=== PATIENT | male | born 1995 | race Two or more races ===

== ENCOUNTER 2024-02-05 18:57 | Inpatient (IN) | payer MEDICAID ==
[~2024-02-05] VITALS: Ht 188 cm; Wt 130.9 kg
--- NOTE | 2024-02-05 19:28 | ED.PDOC ---
GI ASSESSMENT HPI Comments 28 male who came to ER for abdominal pain. Patient states he has been having abdominal since yesterday, originating at the epigastric area, radiating downwards to his suprapubic lower abdomen, described as squeezing and constant. Noted to be nauseated but denies any vomiting or changes in bowel habits. Denie s any history of abdominal surgeries. Denies any history of similar abdominal pain. Chief Complaint: Abdominal Pain Time Seen by MD: 19:27 Reviewed Notes: Nurses Notes Allergies: Coded Allergies: NO KNOWN ALLERGIES (Unverified , 02/05/24) Information Source: Patient Mode of Arrival: Ambulatory Timing: Hours Duration: Since onset Prehospital treatment: None Quality: Other (Squeezing) Vomitus: None Stool: Normal Severity: Moderate Recent: None Recent Hx of: None Pain Location: Epigastric, Suprapubic Modifying Factors: Nothing Associated sign and symptoms: Nausea, Abdominal Pain Past Medical History PAST MEDICAL HISTORY: Denies Surgical History: Denies all surgeries Family History Family History: Reviewed,noncontributory to illness Social History Smoker: Non-Smoker Alcohol: Denies ETOH Use Drugs: Denies Drug Use Lives In: Home Constitutional: denies: chills, diaphoresis, fatigue, fever, malaise, sweats, weakness, others EENTM: denies: blurred vision, double vision, ear bleeding, ear discharge, ear drainage, ear pain, ear ringing, eye pain, eye redness, hearing loss, mouth pain, mouth swelling, nasal discharge, nose bleeding, nose congestion, nose pain, photophobia, tearing, throat pain, throat swelling, voice changes, others Respiratory: denies: cough, hemoptysis, orthopnea, SOB at rest, shortness of breath, SOB with excertion, stridor, wheezing, others Cardiovascular: denies: chest pain, dizzy spells, diaphoresis, Dyspnea on exertion, edema, irregular heart beat, left arm pain, lightheadedness, palpitations, PND, syncope, others Gastrointestinal: reports: abdominal pain, nausea; denies: abdomen distended, blood streaked bowels, constipated, diarrhea, dysphagia, difficulty swallowing, hematemesis, melena, poor appetite, poor fluid intake, rectal bleeding, rectal pain, vomiting, others Genitourinary: denies: burning, dysuria, flank pain, frequency, hematuria, incontinence, penile discharge, penile sore, pain, testicle pain, testicle swelling, urgency, others Neurological: denies: dizziness, fainting, headache, left sided numbness, left sided weakness, numbness, paresthesia, pre-existing deficit, right sided numbness, right sided weakness, seizure, speech problems, tingling, tremors, weakness, others Musculoskeletal: denies: back pain, gout, joint pain, joint swelling, muscle pain, muscle stiffness, neck pain, others Integumetry: denies: bruises, change in color, change in hair/nails, dryness, laceration, lesions, lumps, rash, wounds, others Allergic/Immunocompromised: denies: Difficulty Healing, Frequent Infections, Hives, Itching, others Hematologic/Lymphatic: denies: anemia, blood clots, easy bleeding, easy bruising, swollen glands, others Endocrine: denies: excessive hunger, excessive sweating, excessive thirst, excessive urination, flushing, intolerance to cold, intolerance to heat, unexplained weight gain, unexplained weight loss, others Psychiatric: denies: anxiety, bipolar disorder, depression, hopeless, panic disorder, schizophrenia, sleepless, suicidal, others Physical Exam General Appearance: No Apparent Distress, Normal HEENT: Normal ENT Inspection, Pharynx Normal, TMs Normal Neck: Full Range of Motion, Non-Tender, Normal, Normal Inspection Respiratory: Chest Non-Tender, Lungs Clear, No Accessory Muscle Use, No Respiratory Distress, Normal Breath Sounds Cardiovascular: No Edema, No JVD, No Murmur, No Gallop, Normal Peripheral Pulses, Regular Rate/Rhythm Breast Exam: Deferred Gastrointestinal: No Organomegaly, Non Tender, No Pulsatile Mass, Normal Bowel Sounds, Soft Genitalia: Deferred Pelvic: Deferred Rectal: Deferred Extremities: No calf tenderness, Normal capillary refill, Normal inspection, Normal range of motion, Non-tender, No pedal edema Musculoskeletal : Apperance: Normal Neurologic: Alert, shredded filler cigar maker machine II-XII nml as Tested, No Motor Deficits, Normal Affect, Normal Mood, No Sensory Deficits Cerebellar Function: Normal Reflexes: Normal Skin: Dry, Normal Color, Warm Lymphatic: No Adenopathy Was a procedure done? Was a procedure done?: No GI differential Dx Differential Diagnosis: Cholecystitis, Constipation, Diverticular disease, Gastritis/PUD, Gastroenteritis, Pancreatitis, UTI, Urolithiasis X-Ray, Labs, Meds, VS Vital Signs Date Time Temp Pulse Resp B/P (MAP) Pulse Ox O2 Delivery O2 Flow Rate FiO2 02/05/24 22:06 Room Air* 0 21 02/05/24 22:00 108 20 129/67 (87) 97 02/05/24 21:54 102 18 121/65 02/05/24 21:36 100 20 119/81 02/05/24 21:13 98.0 100 20 119/81 (94) 96 98.0 02/05/24 21:13 100 20 100 Room Air 02/05/24 19:15 97.5 90 16 130/77 (94) 97 Lab Test 02/05/24 19:24 Range/Units White Blood Count 15.2 H 4.4-10.8 10^3/uL Red Blood Count 5.65 4.5-5.90 10^6/uL Hemoglobin 16.5 13.5-17.5 g/dL Hematocrit 50.1 41.0-53.0 % Mean Corpuscular Volume 88.6 80.0-100.0 fL Mean Corpuscular Hemoglobin 29.2 28.0-32.0 pg Mean Corpuscular Hemoglobin Concent 33.0 32.0-36.0 g/dL Red Cell Distribution Width 13.6 11.8-14.3 % Platelet Count 261 140-450 10^3/uL Mean Platelet Volume 7.9 6.9-10.8 fL Neutrophils (%) (Auto) 78.7 37.0-80.0 % Lymphocytes (%) (Auto) 13.0 10.0-50.0 % Monocytes (%) (Auto) 7.8 0.0-12.0 % Eosinophils (%) (Auto) 0.2 0.0-7.0 % Basophils (%) (Auto) 0.3 0.0-2.0 % Neutrophils # (Auto) 11.9 H 1.6-8.6 10 ^3/uL Lymphocytes # (Auto) 2.0 0.4-5.4 10 ^3/uL Monocytes # (Auto) 1.2 0-1.3 10 ^3/uL Eosinophils # (Auto) 0 0-0.8 10 ^3/uL Basophils # (Auto) 0 0-0.2 10 ^3/uL Nucleated Red Blood Cells 0.0 % Sodium Level 138 136-145 mmol/L Potassium Level 3.9 3.5-5.1 mmol/L Chloride Level 102 98-107 mmol/L Carbon Dioxide Level 27 20-31 mmol/L Anion Gap 9 5-15 Blood Urea Nitrogen 7 L 9-23 mg/dL Creatinine 1.04 0.700-1.30 mg/dL Glomerular Filtration Rate Calc 101 >90 mL/min BUN/Creatinine Ratio 6.7 L 10.0-20.0 Serum Glucose 144 H 74-106 mg/dL Hemoglobin A1c 5.7 <5.7 % A1C Calcium Level 10.2 8.7-10.4 mg/dL Total Bilirubin 0.8 0.2-1.0 mg/dL Aspartate Amino Transferase (AST) 13 13-40 U/L Alanine Aminotransferase (ALT) 29 7-40 U/L Alkaline Phosphatase 103 46-116 U/L Total Protein 7.7 5.7-8.2 g/dL Albumin 4.8 3.2-4.8 g/dL Lipase 28 12-53 U/L Current Medications Medications (Trade) Dose Ordered Sig/Nikki Route Start Time Stop Time Status Last Admin Morphine Sulfate 4 mg ONCE ONCE IV 02/05/24 21:00 02/05/24 21:04 DC 02/05/24 21:36 Ondansetron HCl (Zofran) 4 mg ONCE ONCE IV 02/05/24 21:00 02/05/24 21:04 DC 02/05/24 21:34 Metronidazole 100 ml @ 100 mls/hr Q8HR IV 02/05/24 22:00 02/05/24 22:14 Ceftriaxone Sodium 50 ml @ 100 mls/hr ONCE ONCE IV 02/05/24 22:00 02/05/24 22:29 DC 02/05/24 22:15 Sodium Chloride 1,000 ml @ 60 mls/hr [id number] IV 02/05/24 22:00 02/05/24 22:14 Exam: CT CT AB PEL WO CON-NO ORAL OR IV Findings: Evaluation of solid organs is limited due to lack of intravenous contrast use. Lung Bases: No acute or significant lung base finding. Normal heart size. No pleural or pericardial effusion. Liver: The liver is normal in size. No focal lesions. Diffuse steatosis. Gallbladder and Biliary Tree: Unremarkable Spleen: Unremarkable Pancreas: The pancreas is grossly normal in appearance. Adrenal Glands: Unremarkable Kidneys: Kidneys are grossly normal without calculi or hydronephrosis. Bladder: Grossly unremarkable for degree of distention. Bowel: The stomach is grossly normal in appearance. Mild concentric wall thickening of the distal colon, likely reactive .Abnormally dilated appendix measuring up to 10 mm with a 7 mm appendicolith at the base with adjacent fat stranding and disorganized fluid, compatible with acute appendicitis. No drainable abscess identified. Ascites: Absent Lymphadenopathy: No mesenteric, retroperitoneal or periportal lymphadenopathy. Abdominal Wall and Mesentery: Unremarkable. Vasculature: The visualized abdominal aorta is normal in size and caliber. Evaluation of abdominal and pelvic vessels is limited due to lack of intravenous contrast. Pelvic Organs: Unremarkable Musculoskeletal: No aggressive focal bony lesions, acute fractures or dislocation. IMPRESSION: 1. Acute appendicitis with adjacent fat stranding / disorganized fluid. No drainable abscess is identified. Time of 1ST Reevaluation: 19:24 Reevaluation 1ST: Unchanged Time of 2ND Reevaluation: 20:14 Reevaluation 2ND: Unchanged Patient Education/Counseling: Diagnosis, Treatment Family Education/Counseling: No Family Present Departure 1 Departure Time of Disposition: 20:14 Impression: Primary Impression: Appendicitis Disposition: ADMITTED INPATIENT Condition: Guarded Discharged With: Self, Relative Critical Care Note Critical Care Time?: No Stability Stability form required: No Heart Score Heart Score: Heart Score Response (Comments) Value History N/A 0 EKG N/A 0 Age N/A 0 Risk Factors N/A 0 Troponin N/A 0 Total 0 I personally scribed for FRANKY BOUDREAUX MD ([email or web address]) on 02/05/24 at 19:28. Electronically submitted by Vimal Perez ([email or web address]). I personally scribed for FRANKY BOUDREAUX MD ([email or web address]) on 02/05/24 at 20:23. Electronically submitted by Vimal Perez ([email or web address]). FRANKY BOUDREAUX MD Feb 05, 2024 19:28
[2024-02-05 19:35] LABS: Basophils # (auto) 0 10 ^3/uL (0-0.2); Basophils % (auto) 0.3 % (0.0-2.0); Eosinophils # (auto) 0 10 ^3/uL (0-0.8); Eosinophils % (auto) 0.2 % (0.0-7.0); Hematocrit 50.1 % (41.0-53.0); Hemoglobin 16.5 g/dL (13.5-17.5); Mean Corpuscular Hemoglobin 29.2 pg (28.0-32.0); Mean Corpuscular Volume 88.6 fL (80.0-100.0); Monocytes # (auto) 1.2 10 ^3/uL (0-1.3); Monocytes % (auto) 7.8 % (0.0-12.0); Neutrophils # (auto) 11.9 10 ^3/uL (1.6-8.6); Neutrophils % (auto) 78.7 % (37.0-80.0); Platelet Count (auto) 261 10^3/uL (140-450); Red Blood Cells 5.65 10^6/uL (4.5-5.90); Red Cell Distribution Width 13.6 % (11.8-14.3); White Blood Cell 15.2 10^3/uL (4.4-10.8)
[2024-02-05 19:52] LABS: Alanine Aminotransferase 29 U/L (7-40); Alkaline Phosphatase 103 U/L (46-116); Anion Gap 9 (5-15); Aspartate Aminotransferase 13 U/L (13-40); BUN/Creatinine Ratio 6.7 (10.0-20.0); Calcium 10.2 mg/dL (8.7-10.4); Carbon Dioxide 27 mmol/L (20-31); Chloride 102 mmol/L (98-107); Lipase 28 U/L (12-53); Potassium 3.9 mmol/L (3.5-5.1); Sodium 138 mmol/L (136-145)
[2024-02-05 19:53] LABS: Bilirubin, Total 0.8 mg/dL (0.2-1.0); Total Protein 7.7 g/dL (5.7-8.2)
[2024-02-05 19:56] LABS: Albumin 4.8 g/dL (3.2-4.8); Blood Urea Nitrogen 7 mg/dL (9-23); Glucose 144 mg/dL (74-106)
--- NOTE | 2024-02-05 20:08 | DVH ---
Exam: CT CT AB PEL WO CON-NO ORAL OR IV History: BLQ pain Comparison Study: None Technique: Multidetector spiral CT of the abdomen was performed from lung bases to pubic symphysis. Imaging was performed without IV contrast. Axial, coronal and sagittal multiplanar reformats were ob tained from the axial data set by the technologist. Radiation Dose : 1. Abdomen/Pelvis: CTDIvol 25.8 mGy, DLP 1549 mGy*cm. Findings: Evaluation of solid organs is limited due to lack of intravenous contrast use. Lung Bases: No acute or significant lung base finding. Normal heart size. No pleural or pericardial effusion. Liver: The liver is normal in size. No focal lesions. Diffuse steatosis. Gallbladder and Biliary Tree: Unremarkable Spleen: Unremarkable Pancreas: The pancreas is grossly normal in appearance. Adrenal Glands: Unremarkable Kidneys: Kidneys are grossly normal without calculi or hydronephrosis. Bladder: Grossly unremarkable for degree of distention. Bowel: The stomach is grossly normal in appearance. Mild concentric wall thickening of the distal col on, likely reactive .Abnormally dilated appendix measuring up to 10 mm with a 7 mm appendicolith at t he base with adjacent fat stranding and disorganized fluid, compatible with acute appendicitis. No dr ainable abscess identified. Ascites: Absent Lymphadenopathy: No mesenteric, retroperitoneal or periportal lymphadenopathy. Abdominal Wall and Mesentery: Unremarkable. Vasculature: The visualized abdominal aorta is normal in size and caliber. Evaluation of abdominal a nd pelvic vessels is limited due to lack of intravenous contrast. Pelvic Organs: Unremarkable Musculoskeletal: No aggressive focal bony lesions, acute fractures or dislocation. IMPRESSION: 1. Acute appendicitis with adjacent fat stranding / disorganized fluid. No drainable abscess is ident ified. Radiation optimization: All CT scans at this facility use at least one of these dose optimization karena hniques: automated exposure control mA and/or kV adjustment per patient size (includes targeted exam s where dose is matched to clinical indication) or iterative reconstruction.
[2024-02-05] MEDS: DONNATAL 5ml ORAL Elix (BELLADONNA ALK-PHENOBARB) PO ONE (20:57)
[2024-02-05] MEDS: ONDANSETRON ODT 4 MG TAB PO ONE (20:57)
[2024-02-05] MEDS: MAALOX PLUS or MAALOX 30 ML PO ONE (20:57)
[2024-02-05] MEDS: HYDROcodone-ACET 10/325MG TAB PO ONE (20:57)
[2024-02-05] MEDS: LIDOCAINE VISCOUS 2% 15ML UD PO ONE (20:57)
[2024-02-05] MEDS: ONDANSETRON HCL 4 MG/2 ML VIAL IV ONE (21:34)
[2024-02-05] MEDS: MORPHINE SULFATE 4 MG/ML SYR/VIAL IV ONE (21:36)
[2024-02-05] MEDS ORDERED: ACETAMINOPHEN 325 MG TAB PO PRN (22:00)
[2024-02-05] MEDS ORDERED: DOCUSATE SOD 100 MG CAP PO PRN (22:00)
[2024-02-05] MEDS: metroNIDAZOLE 500MG/100ML 100 ML IV SCH (22:14)
[2024-02-05] MEDS: SODIUM CHLORIDE 0.9% 1,000 ML IV SCH (22:14)
[2024-02-05] MEDS: cefTRIAXone 1GM/50ML D5W 50 ML IV ONE (22:15)
--- NOTE | 2024-02-05 22:34 | DVHHP2 ---
History of Present Illness Reason for Visit: Acute appendicitis History of Present Illness The patient is a 28-year-old male who denies past medical history presented to [facility] ED with complaint of abdominal pain. Patient reports symptoms progressively get worse with epigastric abdominal pain, radiating downward to the suprapubic lower abdomen, squeezing in nature, constant, rating 9/10 numeric scale, nauseated, getting worse that prompted this visit. Patient was seen and evaluated in the ED, laboratory data shows elevated WBC 15.2, platelets 261, sodium 138, potassium 3.9, BUN 7, creatinine 1.04, GFR 101, glucose 144, lipase 28. Abdomen/pelvis CT revealing acute appendicitis. Patient was started on IV antibiotic regimen Rocephin, please see medication orders section in the computer. On my assessment, patient denied chest pain, no headache, no dizziness, no shortness of breath, no diarrhea, no nausea, no vomiting, no fever, no chills. Patient was admitted for further evaluation and medical management. Past Medical History Denies past medical history Past Surgical History Denies all surgeries Family History Reviewed, noncontributory to the management of this case. Past Social History The patient lives at home, denies smoking, alcohol or illicit drugs abuse. Review of Systems Constitutional: No: Fever, Chills, Sweats, Weakness, Malaise, Other Eyes: No: Pain, Vision change, Conjunctivae inflammation, Eyelid inflammation, Other, Redness ENT: No: Ear pain, Ear discharge, Nose pain, Nose discharge, Nose congestion, Mouth pain, Mouth swelling, Throat pain, Throat swelling, Other Respiratory: No: Cough, Dry, Shortness of breath, SOB with excertion, Wheezing, Hemoptysis, Pleuritic Pain, Sputum, Wheezing, Other Cardiovascular: No: Chest Pain, Palpitations, Orthopnea, Paroxysmal Noc. Dyspnea, Edema, Lt Headedness, Other Gastrointestinal: Nausea, Abdominal Pain; No: Vomiting, Diarrhea, Constipation, Melena, Hematochezia, Other Genitourinary: No Dysuria, No Frequency, No Incontinence, No Hematuria, No Retention, No Other Musculoskeletal: No: other, neck pain, shoulder pain, arm pain, back pain, hand pain, leg pain, foot pain Skin: No: Rash, Lesions, Jaundice, Bruising, Other Neurological: No: Weakness, Numbness, Incoordination, Change in speech, Confus ion, Seizures, Other Allergies: Coded Allergies: NO KNOWN ALLERGIES (Unverified , 02/05/24) Medications Current Medications Medications Dose Ordered Sig/Nikki Route Start Time Stop Time Status Last Admin Dose Admin Metronidazole 100 ml @ 100 mls/hr Q8HR IV 02/05/24 22:00 02/05/24 22:14 100 MLS/HR Ceftriaxone Sodium 50 ml @ 100 mls/hr DAILY@2300 IV 02/06/24 23:00 Sodium Chloride 1,000 ml @ 60 mls/hr [id number] IV 02/05/24 22:00 02/05/24 22:14 60 MLS/HR Acetaminophen/ Hydrocodone Bitart 1 tab Q4HP PRN PO 02/05/24 22:00 Ondansetron HCl 4 mg Q4HP PRN IV 02/05/24 22:00 Docusate Sodium 100 mg BIDPRN PRN PO 02/05/24 22:00 Acetaminophen 650 mg Q6HP PRN PO 02/05/24 22:00 Morphine Sulfate 2 mg Q4HPRN PRN IV 02/05/24 22:00 Exam Vital Signs Vital Signs Date Time Temp Pulse Resp B/P (MAP) Pulse Ox O2 Delivery O2 Flow Rate FiO2 02/05/24 22:06 Room Air* 0 21 02/05/24 21:54 102 18 121/65 02/05/24 21:13 98.0 96 98.0 General Appearance: Alert, Oriented X3, Cooperative, No acute distress HEENT: Atraumatic, PERRLA, EOMI, Mucous membr. moist/pink Respiratory: Clear to auscultation, Normal air movement Cardiovascular: Regular rate, Normal S1, Normal S2, No murmurs Abdominal: Normal bowel sounds, Soft, No hepatospenomegaly, No masses, Other (Reports tenderness) Extremities: No clubbing, No cyanosis, No edema, Normal pulses, No tenderness/swelling Skin: No rashes, No breakdown, No significant lesion Neuro: Normal gait, Normal speech, Strength at 5/5 X4 ext, Normal tone, Sensation intact, Cranial nerves 3-12 NL, Reflexes 2+ Psych/Mental Status: Mental status NL, Mood NL Labs/Xrays Labs Test 02/05/24 19:24 Range/Units White Blood Count 15.2 H 4.4-10.8 10^3/uL Red Blood Count 5.65 4.5-5.90 10^6/uL Hemoglobin 16.5 13.5-17.5 g/dL Hematocrit 50.1 41.0-53.0 % Mean Corpuscular Volume 88.6 80.0-100.0 fL Mean Corpuscular Hemoglobin 29.2 28.0-32.0 pg Mean Corpuscular Hemoglobin Concent 33.0 32.0-36.0 g/dL Red Cell Distribution Width 13.6 11.8-14.3 % Platelet Count 261 140-450 10^3/uL Mean Platelet Volume 7.9 6.9-10.8 fL Neutrophils (%) (Auto) 78.7 37.0-80.0 % Lymphocytes (%) (Auto) 13.0 10.0-50.0 % Monocytes (%) (Auto) 7.8 0.0-12.0 % Eosinophils (%) (Auto) 0.2 0.0-7.0 % Basophils (%) (Auto) 0.3 0.0-2.0 % Neutrophils # (Auto) 11.9 H 1.6-8.6 10 ^3/uL Lymphocytes # (Auto) 2.0 0.4-5.4 10 ^3/uL Monocytes # (Auto) 1.2 0-1.3 10 ^3/uL Eosinophils # (Auto) 0 0-0.8 10 ^3/uL Basophils # (Auto) 0 0-0.2 10 ^3/uL Nucleated Red Blood Cells 0.0 % Sodium Level 138 136-145 mmol/L Potassium Level 3.9 3.5-5.1 mmol/L Chloride Level 102 98-107 mmol/L Carbon Dioxide Level 27 20-31 mmol/L Anion Gap 9 5-15 Blood Urea Nitrogen 7 L 9-23 mg/dL Creatinine 1.04 0.700-1.30 mg/dL Glomerular Filtration Rate Calc 101 >90 mL/min BUN/Creatinine Ratio 6.7 L 10.0-20.0 Serum Glucose 144 H 74-106 mg/dL Hemoglobin A1c 5.7 <5.7 % A1C Calcium Level 10.2 8.7-10.4 mg/dL Total Bilirubin 0.8 0.2-1.0 mg/dL Aspartate Amino Transferase (AST) 13 13-40 U/L Alanine Aminotransferase (ALT) 29 7-40 U/L Alkaline Phosphatase 103 46-116 U/L Total Protein 7.7 5.7-8.2 g/dL Albumin 4.8 3.2-4.8 g/dL Lipase 28 12-53 U/L PATIENT: AARON BANKST: [id number] UNIT: [id number] : 1995 LOC: ER ROOM / BED: / AGE / SEX: 28 / M ADM STATUS: REG ER SERVICE 21 ORDERING PHYSICIAN: FRANKY BOUDREAUX MD PROCEDURE(s): ABPL - CT AB PEL WO CON-NO ORAL OR IV REASON: BLQ pain ORDER NUMBER(s): [id number], ACCESSION NUMBER(s): [id number] Exam: CT CT AB PEL WO CON-NO ORAL OR IV History: BLQ pain Comparison Study: None Technique: Multidetector spiral CT of the abdomen was performed from lung bases to pubic symphysis. Imaging was performed without IV contrast. Axial, coronal and sagittal multiplanar reformats were obtained from the axial data set by the technologist. Radiation Dose: 1. Abdomen/Pelvis: CTDIvol 25.8 mGy, DLP 1549 mGy*cm. Findings: Evaluation of solid organs is limited due to lack of intravenous contrast use. Lung Bases: No acute or significant lung base finding. Normal heart size. No pleural or pericardial effusion. Liver: The liver is normal in size. No focal lesions. Diffuse steatosis. Gallbladder and Biliary Tree: Unremarkable Spleen: Unremarkable Pancreas: The pancreas is grossly normal in appearance. Adrenal Glands: Unremarkable Kidneys: Kidneys are grossly normal without calculi or hydronephrosis. Bladder: Grossly unremarkable for degree of distention. Bowel: The stomach is grossly normal in appearance. Mild concentric wall thickening of the distal colon, likely reactive .Abnormally dilated appendix measuring up to 10 mm with a 7 mm appendicolith at the base with adjacent fat stranding and disorganized fluid, compatible with acute appendicitis. No drainable abscess identified. Ascites: Absent Lymphadenopathy: No mesenteric, retroperitoneal or periportal lymphadenopathy. Abdominal Wall and Mesentery: Unremarkable. Vasculature: The visualized abdominal aorta is normal in size and caliber. Evaluation of abdominal and pelvic vessels is limited due to lack of intravenous contrast. Pelvic Organs: Unremarkable Musculoskeletal: No aggressive focal bony lesions, acute fractures or dislocation. IMPRESSION: 1. Acute appendicitis with adjacent fat stranding/disorganized fluid. No drainable abscess is identified. Assessment/Plan Assessment/Plan Acute abdominal pain Acute appendicitis Leukocytosis, unspecified Plan 1. Admit to telemetry unit 2. Breathing treatment 3. Pain control management 4. IV antibiotic management 5. Management of fluids and electrolytes 6. Consultation for surgery 7. Diagnostic test abdomen/pelvis CT 8. DVT prophylaxis on SCDs 9. Repeat labs CBC, CMP in a.m. 10. Home medication reviewed and reconciled 11. Continue with current medical management 12. Treatment plan discussed with patient and RN. Patient verbalized understanding. Plan discussed with: Patient, Other (RN) My Orders Orders - BRENDA GILMORE DNP Procedure Category Date Status Time Metronidazole PHA 02/05/24 In Process 500mg/100ml (Flagyl 22:00 Ceftriaxone 1gm/50ml PHA 02/06/24 In Process D5w (Rocephin) 23:00 Allergies GWENDOLYN 02/05/24 In Process 21:46 Code Status CODE 02/05/24 Transmitted 21:46 Sodium Chloride 0.9% PHA 02/05/24 In Process 22:00 Oxygen Per Hour RT 02/05/24 Transmitted 21:46 Hydrocodone-Acet PHA 02/05/24 In Process 5/325mg Tab (Marquand 22:00 Ondansetron Hcl PHA 02/05/24 In Process (Zofran) 22:00 Docusate Sodium PHA 02/05/24 In Process Capsule (Colace 22:00 Complete Blood Count LAB 02/06/24 Verified 04:00 Comprehensive LAB 02/06/24 Verified Metabolic Panel 04:00 Npo (Nothing By DIET 02/06/24 Transmitted Mouth) Diet Breakfast Condition: Serious GWENDOLYN 02/05/24 In Process 21:46 Acetaminophen Tablet PHA 02/05/24 In Process (Tylenol Tablet) 22:00 Bedrest With Bathroom GWENDOLYN 02/05/24 In Process Privileg 21:46 Morphine Sulfate PHA 02/05/24 In Process Injection 22:00 Sequential GWENDOLYN 02/05/24 In Process Compression Device * Surgical Consult CONS 02/05/24 Transmitted Admit ADMIT 02/05/24 Transmitted 22:32 Nitroglycerin PHA 02/05/24 Transmitted Sublingual (Ntrostat 22:45 Morphine Sulfate PHA 02/05/24 Transmitted Injection 22:45 Notify Of Changes GWENDOLYN 02/05/24 Verified From Base 22:32 Silk Screener For [facility] 02/05/24 Verified 24 Hours 22:32 Emergency Dysrhythmia [facility] 02/05/24 Verified Protocol 22:32 Rhythm Strips Once [facility] 02/05/24 Verified Every Shift 22:32 Oxygen By Nasal RT 02/05/24 Verified Cannula 22:32 Problem List: (1) Acute abdominal pain (2) Acute appendicitis (3) Leukocytosis, unspecified Date of Service: Feb 05, 2024 Billing Provider: BRENDA GILMORE DNP Common Visit Codes: [id number] INP/OBS CARE (HIGH) BRENDA GILMORE DNP Feb 05, 2024 22:34
[2024-02-05] MEDS ORDERED: NITROGLYCERIN 0.4 MG SL TAB SL PRN (22:45)
[2024-02-05] MEDS ORDERED: MORPHINE SULFATE INJ 2 MG/ml SYRG IV PRN (22:45)
[2024-02-06] MEDS: HYDROcodone-ACET 5/325MG TAB PO PRN (05:52)
[2024-02-06 06:17] LABS: Basophils # (auto) 0.1 10 ^3/uL (0-0.2); Basophils % (auto) 0.4 % (0.0-2.0); Eosinophils # (auto) 0 10 ^3/uL (0-0.8); Hematocrit 44.9 % (41.0-53.0); Hemoglobin 15.3 g/dL (13.5-17.5); Lymphocytes # (auto) 1.5 10 ^3/uL (0.4-5.4); Lymphocytes % (auto) 8.5 % (10.0-50.0); Mean Corpuscular Hemoglobin 29.9 pg (28.0-32.0); Mean Corpuscular Hgb Conc. 34.2 g/dL (32.0-36.0); Mean Corpuscular Volume 87.6 fL (80.0-100.0); Monocytes # (auto) 1.4 10 ^3/uL (0-1.3); Monocytes % (auto) 7.7 % (0.0-12.0); Neutrophils # (auto) 14.7 10 ^3/uL (1.6-8.6); Neutrophils % (auto) 83.4 % (37.0-80.0); Platelet Count (auto) 232 10^3/uL (140-450); Red Blood Cells 5.12 10^6/uL (4.5-5.90); Red Cell Distribution Width 13.3 % (11.8-14.3); White Blood Cell 17.6 10^3/uL (4.4-10.8)
[2024-02-06 06:36] LABS: Alanine Aminotransferase 25 U/L (7-40); Alkaline Phosphatase 88 U/L (46-116); Anion Gap 7 (5-15); BUN/Creatinine Ratio 9.2 (10.0-20.0); Calcium 9.7 mg/dL (8.7-10.4); Carbon Dioxide 25 mmol/L (20-31); Chloride 104 mmol/L (98-107); Potassium 4.3 mmol/L (3.5-5.1); Sodium 136 mmol/L (136-145)
[2024-02-06 06:37] LABS: Albumin 4.2 g/dL (3.2-4.8); Aspartate Aminotransferase 8 U/L (13-40); Blood Urea Nitrogen 9 mg/dL (9-23); Glucose 130 mg/dL (74-106)
[2024-02-06 08:39] LABS: Urine Bacteria FEW /hpf (None Seen); Urine Blood Negative /uL (Negative); Urine Clarity Clear (Clear); Urine Color Yellow (Yellow); Urine Mucus FEW (None Seen); Urine Protein, UAD 1+ (Negative); Urine Specific Gravity 1.036 (1.001-1.035); Urine Urobilinogen Normal (Negative); Urine WBC 6 /hpf (0 - 3); Urine pH 5.5 (5.0-9.0)
--- NOTE | 2024-02-06 11:14 | DVHPN2 ---
Subjective The patient seen and examined at bedside. The patient is status post appendectomy. Still complaint of abdominal pain. Reviewed: Care Plan, H&P, Labs, Medications, Previous Orders, Radiology Changes from previous H/P or p: No Changes Eyes: No Pain, No Vision change, No Conjunctivae inflammation, No Eyelid inflammation, No Other, No Redness ENT: No Ear pain, No Ear discharge, No Nose pain, No Nose discharge, No Nose congestion, No Mouth pain, No Mouth swelling, No Throat pain, No Throat swelling, No Other Cardiovascular: No Chest Pain, No Palpitations, No Orthopnea, No Paroxysmal Noc. Dyspnea, No Edema, No Lt Headedness, No Other Respiratory: No Cough, No Dry, No Shortness of breath, No SOB with excertion, No Wheezing, No Hemoptysis, No Pleuritic Pain, No Sputum, No Other Gastrointestinal: Nausea; No Vomiting; Abdominal Pain; No Diarrhea, No Constipation, No Melena, No Hematochezia, No Other Genitourinary: No Dysuria, No Frequency, No Incontinence, No Hematuria, No Retention, No Other Musculoskeletal: No other, No neck pain, No shoulder pain, No arm pain, No back pain, No hand pain, No leg pain, No foot pain Skin: No Rash, No Lesions, No Jaundice, No Bruising, No Other Objective Vitals Vital Signs Date Time Temp Pulse Resp B/P (MAP) Pulse Ox O2 Delivery O2 Flow Rate FiO2 02/06/24 10:55 95 25 112/50 (70) 97 02/06/24 08:19 Room Air* 0 21 02/05/24 21:13 98.0 98.0 Intake/Output Intake and Output 02/06/24 07:00 Intake Total 630 ml Balance 630 ml Intake IV Total 630 ml General Appearance: Alert, Oriented X3, Cooperative, No acute distress HEENT: Atraumatic, PERRLA, EOMI, Mucous membr. moist/pink Neck: Supple Lungs: Clear to auscultation, Normal air movement Cardiovascular: Regular rate, Normal S1, Normal S2, No murmurs, Gallops, Rubs Abdomen: Normal bowel sounds, Soft, Other (Mild tender on palpation in all four quadrant) Neuro: Cranial nerves 3-12 NL Psych/Mental Status: Mental status NL Medications Current Medications Medications Dose Ordered Sig/Nikki Route Start Time Stop Time Status Last Admin Dose Admin Metronidazole 100 ml @ 100 mls/hr Q8HR IV 02/05/24 22:00 02/06/24 06:40 100 MLS/HR Ceftriaxone Sodium 50 ml @ 100 mls/hr DAILY@2300 IV 02/06/24 23:00 Sodium Chloride 1,000 ml @ 60 mls/hr [id number] IV 02/05/24 22:00 02/05/24 22:14 60 MLS/HR Acetaminophen/ Hydrocodone Bitart 1 tab Q4HP PRN PO 02/05/24 22:00 02/06/24 05:52 1 TAB Ondansetron HCl 4 mg Q4HP PRN IV 02/05/24 22:00 Docusate Sodium 100 mg BIDPRN PRN PO 02/05/24 22:00 Acetaminophen 650 mg Q6HP PRN PO 02/05/24 22:00 Morphine Sulfate 2 mg Q4HPRN PRN IV 02/05/24 22:00 Nitroglycerin 0.4 mg Q5MINP PRN SL 02/05/24 22:45 Morphine Sulfate 2 mg Q30M PRN IV 02/05/24 22:45 Laboratory Results Laboratory Tests 02/06/24 06:09 Chemistry Test 02/05/24 19:24 02/06/24 06:09 Albumin 4.8 g/dL (3.2-4.8) 4.2 g/dL (3.2-4.8) Calcium Level 10.2 mg/dL (8.7-10.4) 9.7 mg/dL (8.7-10.4) Total Protein 7.7 g/dL (5.7-8.2) 7.0 g/dL (5.7-8.2) Lipid panel Test 02/05/24: Lipase 28 U/L (12-53) LFT Test 02/05/24 19:24 02/06/24 06:09 Alanine Aminotransferase (ALT) 29 U/L (7-40) 25 U/L (7-40) Alkaline Phosphatase 103 U/L (46-116) 88 U/L (46-116) Aspartate Amino Transferase (AST) 13 U/L (13-40) 8 U/L (13-40) L Total Bilirubin 0.8 mg/dL (0.2-1.0) 1.0 mg/dL (0.2-1.0) HgA1c, TSH Test 02/05/24 19:24 Hemoglobin A1c 5.7 % A1C (<5.7) Urinalysis Test 02/06/24 08:17 Urine Color Yellow (Yellow) Urine Clarity Clear (Clear) Urine pH 5.5 (5.0-9.0) Urine Specific [place] 1.036 (1.001-1.035) Urine Protein 1+ (Negative) H Urine Ketones Trace (Negative) Urine Blood Negative /uL (Negative) Urine Nitrite Negative (Negative) Urine Bilirubin Negative (Negative) Urine Urobilinogen Normal mg/dL (Negative) Urine Leukocyte Esterase Negative /uL (Negative) Urine RBC 3 /hpf (0 - 3) Urine WBC 6 /hpf (0 - 3) Urine Squamous Epithelial Cells Few /hpf (<5) Urine Bacteria Few /hpf (None Seen) H Urine Mucus Few (None Seen) Urine Glucose Normal mg/dL (Normal) Labs and/or images reviewed: Labs reviewed by me Assessment/Plan Assessment/Plan Acute appendicitis status post appendectomy Abdominal pain Nausea and vomiting Plan: Continuing current management. Continuing with IV fluid. Continuing with IV antibiotic. Continuing with IV Zofran p.r.n. for nausea or vomiting. Continuing with IV pain medication. Diet advanced per surgeon. Plan discussed with: Patient Date of Service: Feb 06, 2024 Billing Provider: KEVAN DURHAM MD Common Visit Codes: [id number] INP/OBS CARE(HIGH) KEVAN DURHAM MD Feb 06, 2024 11:14
[2024-02-06] MEDS ORDERED: fentaNYL CITRATE 100 MCG/2 ML VL ONE (11:40)
[2024-02-06] MEDS ORDERED: MIDAZOLAM HCL 2MG/2ML 2ml VIAL (1mg/ml) ONE (11:41)
[2024-02-06] MEDS: ceFAZolin 1GM/50ML 100 ML IV ONE (12:20)
[2024-02-06] MEDS ORDERED: MEPERIDINE HCL (50 MG/ML) 1 ML VIAL ONE (12:28)
[2024-02-06] MEDS ORDERED: DexAMETHasone SOD PHOS 10MG/1ML VIAL INJ ONE (13:19)
[2024-02-06] MEDS ORDERED: SUGAMMADEX 200mg/2ml Vial (100MG/ML) IV ONE (13:29)
[2024-02-06 13:42] VITALS: PULSE 96; RESP 20; O2SAT 92
[2024-02-06] MEDS ORDERED: MIDAZOLAM HCL 2MG/2ML 2ml VIAL (1mg/ml) IV PRN (14:15)
[2024-02-06] MEDS ORDERED: ePHEDrine SULFATE 50 MG/ML AMP IV PRN (14:15)
[2024-02-06] MEDS ORDERED: fentaNYL CITRATE 100 MCG/2 ML VL IV PRN (14:15)
[2024-02-06] MEDS ORDERED: MORPHINE SULFATE 4 MG/ML SYR/VIAL IV PRN (14:15)
[2024-02-06] MEDS ORDERED: hydrALAZINE HCL 20 MG/ML VL IV PRN (14:15)
[2024-02-06] MEDS: HYDROmorphone HCL 2 MG/ML VL/or syr IV PRN (14:16)
--- NOTE | 2024-02-06 14:39 | DVHOP ---
DATE OF SURGERY: 02/06/2024 PREOPERATIVE DIAGNOSES: Appendicitis, morbid obesity. POSTOPERATIVE DIAGNOSIS: Ruptured appendicitis, right lower quadrant intraperitoneal abscess, morbid obesity. SURGEON: Arron Martinez MD ANESTHESIA: General endotracheal. ANESTHESIOLOGIST: Dr. Cabrera. PROCEDURE: Laparoscopy converted to laparotomy, open appendectomy and evacuation of right lower quadrant peritoneal abscess. DESCRIPTION OF PROCEDURE: Under adequate anesthesia, with the patient's skin prepped and draped, supraumbilical incision was made and Veress needle inserted by the hanging drop technique to establish pneumoperitoneum to 15 mmHg pressure by insufflation with carbon dioxide. With the abdomen fully distended, the needle was removed and replaced with a 5 mm trocar port through which a 0-degree viewing laparoscope was inserted and under direct vision, 5 and 10 mm ports inserted through the upper abdomen. The patient's laparoscopy was hampered by the patient's morbid obesity; however, no obvious unexpected pathology was encountered on the serosal surfaces visualized. The patient has an ileus, which was evidenced by dilated loops of bowel and colon. In the right lower quadrant was an accumulation of adipose tissue, omentum and several loops of bowel, which was bluntly, evidenced pus and purulent peritoneal fluid. This was cultured. At this point, the appendix was found in a retrocecal position, it was densely adherent to the posterior peritoneum. It was impossible to mobilize due to the patient's obesity and the chronicity of his inflammation was necessary to convert the operation to an open procedure. A lower midline incision was made. Hemostasis was accomplished. The abdomen was manually and visually inspected. The appendix was mobilized and brought out into the wound and a BRIANNE stapler was used at the base of the appendix at its confluence with the cecum and compressing the adipose mesoappendix. The specimen was removed from the field. The right lower quadrant and abdomen were profusely irrigated, irrigant was aspirated. A 10 mm Gonzalo-Sigala drain was placed into the space previously occupied by the abdominal abscess. The drain was exteriorized through the 5 mm trocar port site and secured with a 2-0 nylon suture. Following assurance of complete hemostasis, and report of an accurate needle and sponge counts x2 by the nursing personnel, the abdomen was closed using #1 double stranded PDS suture for the approximation of the fascia and metallic skin yoan for approximation of the skin edges. The patient remained hemodynamically stable throughout the procedure, left the operating room following an accurate needle and sponge count. His mother ____ was thoroughly informed in the waiting area. Arron Martinez MD PF TID: [id number] RECEIPT: [id number]
[2024-02-06 15:25] VITALS: BP 107/57; PULSE 83; RESP 16; TEMP 97.9; O2SAT 95
[2024-02-06 15:49] VITALS: BP 121/65; PULSE 88; RESP 17; TEMP 97.8; O2SAT 96
[2024-02-06] MEDS ORDERED: PHENYLEPHRINE HCL 10 MG/ML VL IV ONE (17:36)
[2024-02-06 20:00] VITALS: PULSE 90; RESP 18; O2SAT 97
[2024-02-06 21:00] VITALS: BP 111/67; PULSE 90; RESP 18; TEMP 98.3; O2SAT 97
[2024-02-06] MEDS: cefTRIAXone 1GM/50ML D5W 50 ML IV SCH (23:09)
[2024-02-07] VITALS (8 sets, daily range): BP systolic 105–124; BP diastolic 57–70; PULSE 70–90; RESP 16–20; TEMP 98.1–98.5; O2SAT 93–99
--- NOTE | 2024-02-07 10:46 | DVHPN2 ---
Progress Note Date Seen: Feb 07, 2024 Medical Necessity Reason Pt with a Central, PICC or Fol: Yes Subjective Patient reports: No new complaints, Feels better Review of Systems: HEENT:Normal, CVS:Normal, RESPIRATORY:Normal, GI:Normal, :Normal, NEURO:Normal Objective vital signs Vital Sign Date Time Temp Pulse Resp B/P (MAP) Pulse Ox O2 Delivery O2 Flow Rate FiO2 02/07/24 09:44 98.5 71 16 105/57 (73) 99 98.5 02/06/24 20:00 Room Air* 2 N/A Nasal Cannula* Total Intake and Output 02/06/24 02/06/24 02/07/24 15:00 23:00 07:00 Intake Total 340 ml 100 ml 690 ml Output Total 30 ml 0 ml 550 ml Balance 310 ml 100 ml 140 ml medications Current Medications Medications Dose Ordered Sig/Nikki Route Start Time Stop Time Status Last Admin Dose Admin Metronidazole 100 ml @ 100 mls/hr Q8HR IV 02/05/24 22:00 02/07/24 05:18 100 MLS/HR Ceftriaxone Sodium 50 ml @ 100 mls/hr DAILY@2300 IV 02/06/24 23:00 02/06/24 23:09 100 MLS/HR Sodium Chloride 1,000 ml @ 60 mls/hr [id number] IV 02/05/24 22:00 02/06/24 16:00 60 MLS/HR Acetaminophen/ Hydrocodone Bitart 1 tab Q4HP PRN PO 02/05/24 22:00 02/06/24 17:55 1 TAB Ondansetron HCl 4 mg Q4HP PRN IV 02/05/24 22:00 Docusate Sodium 100 mg BIDPRN PRN PO 02/05/24 22:00 Acetaminophen 650 mg Q6HP PRN PO 02/05/24 22:00 Morphine Sulfate 2 mg Q4HPRN PRN IV 02/05/24 22:00 Nitroglycerin 0.4 mg Q5MINP PRN SL 02/05/24 22:45 Morphine Sulfate 2 mg Q30M PRN IV 02/05/24 22:45 Examination: GENERAL:Normal, HEENT:Normal, NECK:Normal, LUNGS:Normal, CVS:Normal, ABDOMEN:Abnormal (JAYLEN drain), SKIN:Normal laboratory and microbiology Laboratory Tests 02/06/24 06:09 Test 02/06/24 06:09 Range/Units Serum Glucose 130 H 74-106 mg/dL Problem List/Assessment/Plan Problem List/Assessment/Plan 02/07/24 abdomen soft, non distended, approximately tender, wound clean dry and intact, denies passing gas or bowel movement, patient to ambulate, ok clear liquids, DC clear liquids if any nausea or vomiting Plan discussed with: Patient OPAL GRANT NP Feb 07, 2024 10:46
[2024-02-07] MEDS: ONDANSETRON HCL 4 MG/2 ML VIAL IV PRN (13:08)
--- NOTE | 2024-02-07 14:04 | DVHPN2 ---
Subjective Reports having some nausea Reviewed: Care Plan, H&P, Labs, Medications, Previous Orders Changes from previous H/P or p: No Changes General: Per HPI Eyes: No Pain, No Vision change, No Conjunctivae inflammation, No Eyelid inflammation, No Other, No Redness ENT: No Ear pain, No Ear discharge, No Nose pain, No Nose discharge, No Nose congestion, No Mouth pain, No Mouth swelling, No Throat pain, No Throat swelling, No Other Cardiovascular: No Chest Pain, No Palpitations, No Orthopnea, No Paroxysmal Noc. Dyspnea, No Edema, No Lt Headedness, No Other Respiratory: No Cough, No Dry, No Shortness of breath, No SOB with excertion, No Wheezing, No Hemoptysis, No Pleuritic Pain, No Sputum, No Other Gastrointestinal: Nausea; No Vomiting; Abdominal Pain; No Diarrhea, No Constipation, No Melena, No Hematochezia, No Other Genitourinary: No Dysuria, No Frequency, No Incontinence, No Hematuria, No Retention, No Other Musculoskeletal: No other, No neck pain, No shoulder pain, No arm pain, No back pain, No hand pain, No leg pain, No foot pain Skin: No Rash, No Lesions, No Jaundice, No Bruising, No Other Objective Vitals Vital Signs Date Time Temp Pulse Resp B/P (MAP) Pulse Ox O2 Delivery O2 Flow Rate FiO2 02/07/24 13:38 98.2 90 16 116/66 (83) 96 98.2 02/07/24 08:00 Room Air* 0 N/A Nasal Cannula* Intake/Output Intake and Output 02/07/24 07:00 Intake Total 1130 ml Output Total 580 ml Balance 550 ml Intake Oral 0 ml IV Total 1130 ml Output Urine Total 525 ml Drainage Total 55 ml General Appearance: Alert, Oriented X3, Cooperative, mild distress HEENT: Atraumatic, PERRLA Lungs: Clear to auscultation, Normal air movement Cardiovascular: Normal S1, Normal S2 Abdomen: Normal bowel sounds Genitourinary: No Apparent Abnormalities Musculoskeletal: Normal sensory function, Normal motor function Extremities: No clubbing, No cyanosis Neuro: Normal gait, Normal speech Psych/Mental Status: Mental status NL, Mood NL Medications Current Medications Medications Dose Ordered Sig/Nikki Route Start Time Stop Time Status Last Admin Dose Admin Metronidazole 100 ml @ 100 mls/hr Q8HR IV 02/05/24 22:00 02/07/24 05:18 100 MLS/HR Ceftriaxone Sodium 50 ml @ 100 mls/hr DAILY@2300 IV 02/06/24 23:00 02/06/24 23:09 100 MLS/HR Sodium Chloride 1,000 ml @ 60 mls/hr [id number] IV 02/05/24 22:00 02/06/24 16:00 60 MLS/HR Acetaminophen/ Hydrocodone Bitart 1 tab Q4HP PRN PO 02/05/24 22:00 02/07/24 13:08 1 TAB Ondansetron HCl 4 mg Q4HP PRN IV 02/05/24 22:00 02/07/24 13:08 4 MG Docusate Sodium 100 mg BIDPRN PRN PO 02/05/24 22:00 Acetaminophen 650 mg Q6HP PRN PO 02/05/24 22:00 Morphine Sulfate 2 mg Q4HPRN PRN IV 02/05/24 22:00 Nitroglycerin 0.4 mg Q5MINP PRN SL 02/05/24 22:45 Morphine Sulfate 2 mg Q30M PRN IV 02/05/24 22:45 Laboratory Results Laboratory Tests 02/06/24 06:09 Urinalysis Test 02/06/24 08:17 Urine Color Yellow (Yellow) Urine Clarity Clear (Clear) Urine pH 5.5 (5.0-9.0) Urine Specific [place] 1.036 (1.001-1.035) Urine Protein 1+ (Negative) H Urine Ketones Trace (Negative) Urine Blood Negative /uL (Negative) Urine Nitrite Negative (Negative) Urine Bilirubin Negative (Negative) Urine Urobilinogen Normal mg/dL (Negative) Urine Leukocyte Esterase Negative /uL (Negative) Urine RBC 3 /hpf (0 - 3) Urine WBC 6 /hpf (0 - 3) Urine Squamous Epithelial Cells Few /hpf (<5) Urine Bacteria Few /hpf (None Seen) H Urine Mucus Few (None Seen) Urine Glucose Normal mg/dL (Normal) Microbiology Microbiology Date/Time Source Procedure Growth Status 02/06/24 13:09 Peritoneal Fluid Gram Stain Pending Resulted 02/06/24 13:09 Peritoneal Fluid Anaerobic Culture - Preliminary Resulted 02/06/24 13:09 Peritoneal Fluid Aerobic Culture - Preliminary Resulted Labs and/or images reviewed: Labs reviewed by me, Image(s) reviewed by me Assessment/Plan Assessment/Plan Impression: -sepsis secondary to perforated appendix -acute appendicitis -morbid obesity Plan: -patient postop day one open appendectomy. Recovery at this times uneventful. Patient continues to report having nausea, worsening after starting clear liquids. Instructed patient to decreased p.o. intake -increase IV fluids to 100 mL/hr -pain management -continue antibiotic therapy with Rocephin and Flagyl -PUD, DVT prophylaxis -repeat labs in a.m. Total time spent with patient discussing and formulating plan of care: 35 minutes. This medical document was created using an electronic medical record system with [employer] dictation system. Although this document has been carefully reviewed, there may still be some phonetic and typographical errors. These areas are purely typographical due to imperfections of the software programs, and do not reflect any compromise in the patient's medical care. Plan discussed with: Patient, Other (RN) My Orders Orders - FABIO SORIA NP Procedure Category Date Status Time Metoclopramide PHA 02/07/24 Logged Injection (Reglan 13:30 Date of Service: Feb 07, 2024 Billing Provider: FABIO SORIA NP Common Visit Codes: [id number] INP/OBS CARE(HIGH) FABIO SORIA NP Feb 07, 2024 14:04
[2024-02-08] VITALS (8 sets, daily range): BP systolic 11–133; BP diastolic 65–83; PULSE 60–71; RESP 16–20; TEMP 98.1–98.7; O2SAT 95–99
[2024-02-08] MEDS: MORPHINE SULFATE INJ 2 MG/ml SYRG IV PRN (03:16)
[2024-02-08] MEDS: BUPIVACAINE HCL 50 ML ONE (09:20)
[2024-02-08] MEDS: LIDOCAINE 2% JELLY 11ml (GLYDO) ONE (09:20)
[2024-02-08] MEDS: LIDOCAINE W/ EPINEPHRINE 1% 20ML VIAL ONE (09:20)
[2024-02-08] MEDS: SUCCINYLCHOLINE CHLORIDE 20 MG/ML 10ML VIAL IV ONE (09:20)
[2024-02-08] MEDS: ceFAZolin 1GM/50ML 50 ML IV ONE (09:21)
[2024-02-08] MEDS: HYDROmorphone HCL 2 MG/ML VL/or syr ONE (09:22)
[2024-02-08] MEDS: KETOROLAC TROMETH 30 MG/ML 1ML VIAL IV ONE (09:24)
[2024-02-08] MEDS: ONDANSETRON HCL 4 MG/2 ML VIAL IV ONE (09:24)
[2024-02-08] MEDS: METOCLOPRAMIDE HCL 5MG/ml INJ 2ml VIAL IV ONE (09:25)
--- NOTE | 2024-02-08 11:17 | DVHPN2 ---
Progress Note Date Seen: Feb 08, 2024 Has the PT tested + for MRSA If YES, has PT been informed?: No Medical Necessity Reason Pt with a Central, PICC or Fol: Yes Objective vital signs Vital Sign Date Time Temp Pulse Resp B/P (MAP) Pulse Ox O2 Delivery O2 Flow Rate FiO2 02/08/24 09:53 98.7 61 17 117/68 (84) 99 98.7 02/08/24 08:10 Room Air* 0 N/A Nasal Cannula* Total Intake and Output 02/07/24 02/07/24 02/08/24 15:00 23:00 07:00 Intake Total 1575 ml 1450 ml Output Total 50 ml 360 ml Balance 1525 ml 1090 ml medications Current Medications Medications Dose Ordered Sig/Nikki Route Start Time Stop Time Status Last Admin Dose Admin Metronidazole 100 ml @ 100 mls/hr Q8HR IV 02/05/24 22:00 02/08/24 05:46 100 MLS/HR Ceftriaxone Sodium 50 ml @ 100 mls/hr DAILY@2300 IV 02/06/24 23:00 02/07/24 22:26 100 MLS/HR Sodium Chloride 1,000 ml @ 60 mls/hr [id number] IV 02/05/24 22:00 02/08/24 03:24 60 MLS/HR Acetaminophen/ Hydrocodone Bitart 1 tab Q4HP PRN PO 02/05/24 22:00 02/08/24 05:54 1 TAB Ondansetron HCl 4 mg Q4HP PRN IV 02/05/24 22:00 02/07/24 13:08 4 MG Docusate Sodium 100 mg BIDPRN PRN PO 02/05/24 22:00 Acetaminophen 650 mg Q6HP PRN PO 02/05/24 22:00 Morphine Sulfate 2 mg Q4HPRN PRN IV 02/05/24 22:00 02/08/24 09:16 2 MG Morphine Sulfate 2 mg Q30M PRN IV 02/05/24 22:45 laboratory and microbiology Laboratory Tests 02/06/24 06:09 Test 02/06/24 06:09 Range/Units Serum Glucose 130 H 74-106 mg/dL Problem List/Assessment/Plan Problem List/Assessment/Plan 02/08/24 abdomen non distended, appropriately tender, drainage serous, will advance diet, probably DC tomorrow with po antibiotic Plan discussed with: Patient DARCI DALEY MD Feb 08, 2024 11:17
[2024-02-08 14:20] LABS: Basophils # (auto) 0 10 ^3/uL (0-0.2); Basophils % (auto) 0.3 % (0.0-2.0); Eosinophils # (auto) 0 10 ^3/uL (0-0.8); Eosinophils % (auto) 0.1 % (0.0-7.0); Hematocrit 46.1 % (41.0-53.0); Hemoglobin 15.3 g/dL (13.5-17.5); Lymphocytes # (auto) 1.1 10 ^3/uL (0.4-5.4); Lymphocytes % (auto) 8.6 % (10.0-50.0); Mean Corpuscular Hemoglobin 29.3 pg (28.0-32.0); Mean Corpuscular Hgb Conc. 33.2 g/dL (32.0-36.0); Mean Corpuscular Volume 88.4 fL (80.0-100.0); Monocytes # (auto) 1.1 10 ^3/uL (0-1.3); Monocytes % (auto) 8.7 % (0.0-12.0); Neutrophils # (auto) 10.5 10 ^3/uL (1.6-8.6); Neutrophils % (auto) 82.3 % (37.0-80.0); Platelet Count (auto) 314 10^3/uL (140-450); Red Blood Cells 5.21 10^6/uL (4.5-5.90); Red Cell Distribution Width 13.5 % (11.8-14.3); White Blood Cell 12.7 10^3/uL (4.4-10.8)
[2024-02-08 14:36] LABS: Anion Gap 7 (5-15); Calcium 9.1 mg/dL (8.7-10.4); Carbon Dioxide 27 mmol/L (20-31); Chloride 105 mmol/L (98-107); Potassium 4.1 mmol/L (3.5-5.1); Sodium 139 mmol/L (136-145)
[2024-02-08 14:42] LABS: BUN/Creatinine Ratio 20.5 (10.0-20.0); Blood Urea Nitrogen 16 mg/dL (9-23)
[2024-02-08 14:44] LABS: Glucose 109 mg/dL (74-106)
--- NOTE | 2024-02-08 15:44 | DVHPN2 ---
Subjective Reports having some nausea Reviewed: Care Plan, H&P, Labs, Medications, Previous Orders, Radiology Changes from previous H/P or p: No Changes General: Per HPI Eyes: No Pain, No Vision change, No Conjunctivae inflammation, No Eyelid inflammation, No Other, No Redness ENT: No Ear pain, No Ear discharge, No Nose pain, No Nose discharge, No Nose congestion, No Mouth pain, No Mouth swelling, No Throat pain, No Throat swelling, No Other Cardiovascular: No Chest Pain, No Palpitations, No Orthopnea, No Paroxysmal Noc. Dyspnea, No Edema, No Lt Headedness, No Other Respiratory: No Cough, No Dry, No Shortness of breath, No SOB with excertion, No Wheezing, No Hemoptysis, No Pleuritic Pain, No Sputum, No Other Gastrointestinal: Nausea; No Vomiting; Abdominal Pain; No Diarrhea, No Constipation, No Melena, No Hematochezia, No Other Genitourinary: No Dysuria, No Frequency, No Incontinence, No Hematuria, No Retention, No Other Musculoskeletal: No other, No neck pain, No shoulder pain, No arm pain, No back pain, No hand pain, No leg pain, No foot pain Skin: No Rash, No Lesions, No Jaundice, No Bruising, No Other Objective Vitals Vital Signs Date Time Temp Pulse Resp B/P (MAP) Pulse Ox O2 Delivery O2 Flow Rate FiO2 02/08/24 13:00 98.2 60 17 126/73 (90) 98 98.2 02/08/24 08:10 Room Air* 0 N/A Nasal Cannula* Intake/Output Intake and Output 02/08/24 07:00 Intake Total 3025 ml Output Total 410 ml Balance 2615 ml Intake Oral 500 ml IV Total 2525 ml Output Urine Total 360 ml Gastric Drainage Total 50 ml # Voids 2 General Appearance: Alert, Oriented X3, Cooperative, No acute distress HEENT: Atraumatic, PERRLA, EOMI, Mucous membr. moist/pink Neck: Supple Lungs: Clear to auscultation, Normal air movement Cardiovascular: Regular rate, Normal S1, Normal S2, No murmurs, Gallops, Rubs Abdomen: Normal bowel sounds, Soft, Other (Mild tender on palpation in all four quadrant) Genitourinary: No Apparent Abnormalities Musculoskeletal: Normal sensory function, Normal motor function Extremities: No clubbing, No cyanosis Neuro: Cranial nerves 3-12 NL Psych/Mental Status: Mental status NL, Mood NL Medications Current Medications Medications Dose Ordered Sig/Nikki Route Start Time Stop Time Status Last Admin Dose Admin Metronidazole 100 ml @ 100 mls/hr Q8HR IV 02/05/24 22:00 02/08/24 13:44 100 MLS/HR Ceftriaxone Sodium 50 ml @ 100 mls/hr DAILY@2300 IV 02/06/24 23:00 02/07/24 22:26 100 MLS/HR Sodium Chloride 1,000 ml @ 60 mls/hr [id number] IV 02/05/24 22:00 02/08/24 03:24 60 MLS/HR Acetaminophen/ Hydrocodone Bitart 1 tab Q4HP PRN PO 02/05/24 22:00 02/08/24 05:54 1 TAB Ondansetron HCl 4 mg Q4HP PRN IV 02/05/24 22:00 02/07/24 13:08 4 MG Docusate Sodium 100 mg BIDPRN PRN PO 02/05/24 22:00 Acetaminophen 650 mg Q6HP PRN PO 02/05/24 22:00 Morphine Sulfate 2 mg Q4HPRN PRN IV 02/05/24 22:00 02/08/24 09:16 2 MG Morphine Sulfate 2 mg Q30M PRN IV 02/05/24 22:45 Laboratory Results Laboratory Tests 02/08/24 13:29 Chemistry Test 02/08/24 13:29 Calcium Level 9.1 mg/dL (8.7-10.4) Urinalysis Test 02/06/24 08:17 Urine Color Yellow (Yellow) Urine Clarity Clear (Clear) Urine pH 5.5 (5.0-9.0) Urine Specific [place] 1.036 (1.001-1.035) Urine Protein 1+ (Negative) H Urine Ketones Trace (Negative) Urine Blood Negative /uL (Negative) Urine Nitrite Negative (Negative) Urine Bilirubin Negative (Negative) Urine Urobilinogen Normal mg/dL (Negative) Urine Leukocyte Esterase Negative /uL (Negative) Urine RBC 3 /hpf (0 - 3) Urine WBC 6 /hpf (0 - 3) Urine Squamous Epithelial Cells Few /hpf (<5) Urine Bacteria Few /hpf (None Seen) H Urine Mucus Few (None Seen) Urine Glucose Normal mg/dL (Normal) Microbiology Microbiology Date/Time Source Procedure Growth Status 02/06/24 13:09 Peritoneal Fluid Gram Stain - Final Resulted 02/06/24 13:09 Peritoneal Fluid Anaerobic Culture - Preliminary Resulted 02/06/24 13:09 Aerobic Culture - Preliminary Escherichia coli Resulted Labs and/or images reviewed: Labs reviewed by me, Image(s) reviewed by me Assessment/Plan Assessment/Plan Impression: -sepsis secondary to perforated appendix -acute appendicitis -morbid obesity Plan: -No events overnight. WBC improved -continue IVF -pain management -continue antibiotic therapy with Rocephin and Flagyl -PUD, DVT prophylaxis -repeat labs in a.m. Total time spent with patient discussing and formulating plan of care: 35 minutes. This medical document was created using an electronic medical record system with [employer] dictation system. Although this document has been carefully reviewed, there may still be some phonetic and typographical errors. These areas are purely typographical due to imperfections of the software programs, and do not reflect any compromise in the patient's medical care. Plan discussed with: Patient, Other (RN) Date of Service: Feb 08, 2024 Billing Provider: FABIO SORIA NP Common Visit Codes: [id number] INP/OBS CARE(HIGH) FABIO SORIA NP Feb 08, 2024 15:44
[2024-02-09 01:00] VITALS: BP 135/70; PULSE 65; RESP 20; TEMP 98.5; O2SAT 93
[2024-02-09 05:00] VITALS: BP 118/80; PULSE 69; RESP 20; TEMP 98.8; O2SAT 93
[2024-02-09 08:00] VITALS: PULSE 84; RESP 17
[2024-02-09 09:00] VITALS: BP 125/76; PULSE 84; RESP 17; TEMP 98.3; O2SAT 92
--- NOTE | 2024-02-09 12:53 | DVHPN2 ---
Progress Note Date Seen: Feb 09, 2024 Has the PT tested + for MRSA If YES, has PT been informed?: No Medical Necessity Reason Pt with a Central, PICC or Fol: Yes Objective vital signs Vital Sign Date Time Temp Pulse Resp B/P (MAP) Pulse Ox O2 Delivery O2 Flow Rate FiO2 02/09/24 09:00 98.3 84 17 125/76 (92) 92 98.3 02/08/24 20:00 Room Air* 0 N/A Nasal Cannula* Total Intake and Output 02/08/24 02/08/24 02/09/24 15:00 23:00 07:00 Intake Total 100 ml 1100 ml 475 ml Output Total 160 ml 150 ml Balance -60 ml 950 ml 475 ml medications Current Medications Medications Dose Ordered Sig/Nikki Route Start Time Stop Time Status Last Admin Dose Admin Metronidazole 100 ml @ 100 mls/hr Q8HR IV 02/05/24 22:00 02/09/24 07:10 100 MLS/HR Ceftriaxone Sodium 50 ml @ 100 mls/hr DAILY@2300 IV 02/06/24 23:00 02/08/24 23:10 100 MLS/HR Sodium Chloride 1,000 ml @ 60 mls/hr [id number] IV 02/05/24 22:00 02/08/24 17:05 60 MLS/HR Acetaminophen/ Hydrocodone Bitart 1 tab Q4HP PRN PO 02/05/24 22:00 02/08/24 05:54 1 TAB Ondansetron HCl 4 mg Q4HP PRN IV 02/05/24 22:00 02/08/24 20:11 4 MG Docusate Sodium 100 mg BIDPRN PRN PO 02/05/24 22:00 Acetaminophen 650 mg Q6HP PRN PO 02/05/24 22:00 Morphine Sulfate 2 mg Q4HPRN PRN IV 02/05/24 22:00 02/08/24 09:16 2 MG Morphine Sulfate 2 mg Q30M PRN IV 02/05/24 22:45 laboratory and microbiology Laboratory Tests 02/08/24 13:29 Test 02/08/24 13:29 Range/Units Serum Glucose 109 H 74-106 mg/dL Problem List/Assessment/Plan Problem List/Assessment/Plan 02/08/24 abdomen non distended, appropriately tender, drainage serous, will advance diet, probably DC tomorrow with po antibiotic 02/09/24 cleared for discharge, return top see me in ten days Plan discussed with: Patient DARCI DALEY MD Feb 09, 2024 12:52
[2024-02-09 13:00] VITALS: BP 121/82; PULSE 75; RESP 18; TEMP 98; O2SAT 93
[2024-02-09] MEDS ORDERED: METR-344 PO (14:27)
[2024-02-09] MEDS ORDERED: LEVO500T91 PO (14:27)
[2024-02-09] MEDS ORDERED: TRAM50TA2 PO (14:27)
--- NOTE | 2024-02-09 14:35 | DVHDS2 ---
Discharge Summary Date of Admission Feb 05, 2024 at 22:32 Date of Discharge: Feb 09, 2024 Admitting Diagnosis Acute appendicitis Labs/Diagnostic Data: Laboratory Results Test 02/08/24 13:29 02/06/24 08:17 02/06/24 06:09 02/05/24 19:24 White Blood Count 12.7 10^3/uL (4.4-10.8) Red Blood Count 5.21 10^6/uL (4.5-5.90) Hemoglobin 15.3 g/dL (13.5-17.5) Hematocrit 46.1 % (41.0-53.0) Mean Corpuscular Volume 88.4 fL (80.0-100.0) Mean Corpuscular Hemoglobin 29.3 pg (28.0-32.0) Mean Corpuscular Hemoglobin Concent 33.2 g/dL (32.0-36.0) Red Cell Distribution Width 13.5 % (11.8-14.3) Platelet Count 314 10^3/uL (140-450) Mean Platelet Volume 8.5 fL (6.9-10.8) Neutrophils (%) (Auto) 82.3 % (37.0-80.0) Lymphocytes (%) (Auto) 8.6 % (10.0-50.0) Monocytes (%) (Auto) 8.7 % (0.0-12.0) Eosinophils (%) (Auto) 0.1 % (0.0-7.0) Basophils (%) (Auto) 0.3 % (0.0-2.0) Neutrophils # (Auto) 10.5 10 ^3/uL (1.6-8.6) Lymphocytes # (Auto) 1.1 10 ^3/uL (0.4-5.4) Monocytes # (Auto) 1.1 10 ^3/uL (0-1.3) Eosinophils # (Auto) 0 10 ^3/uL (0-0.8) Basophils # (Auto) 0 10 ^3/uL (0-0.2) Nucleated Red Blood Cells 0.0 % Sodium Level 139 mmol/L (136-145) Potassium Level 4.1 mmol/L (3.5-5.1) Chloride Level 105 mmol/L (98-107) Carbon Dioxide Level 27 mmol/L (20-31) Anion Gap 7 (5-15) Blood Urea Nitrogen 16 mg/dL (9-23) Creatinine 0.78 mg/dL (0.700-1.30) Glomerular Filtration Rate Calc 125 mL/min (>90) BUN/Creatinine Ratio 20.5 (10.0-20.0) Serum Glucose 109 mg/dL (74-106) Calcium Level 9.1 mg/dL (8.7-10.4) Urine Color Yellow (Yellow) Urine Clarity Clear (Clear) Urine pH 5.5 (5.0-9.0) Urine Specific [place] 1.036 (1.001-1.035) Urine Protein 1+ (Negative) Urine Ketones Trace (Negative) Urine Blood Negative /uL (Negative) Urine Nitrite Negative (Negative) Urine Bilirubin Negative (Negative) Urine Urobilinogen Normal mg/dL (Negative) Urine Leukocyte Esterase Negative /uL (Negative) Urine RBC 3 /hpf (0 - 3) Urine WBC 6 /hpf (0 - 3) Urine Squamous Epithelial Cells Few /hpf (<5) Urine Bacteria Few /hpf (None Seen) Urine Mucus Few (None Seen) Urine Glucose Normal mg/dL (Normal) Total Bilirubin 1.0 mg/dL (0.2-1.0) Aspartate Amino Transferase (AST) 8 U/L (13-40) Alanine Aminotransferase (ALT) 25 U/L (7-40) Alkaline Phosphatase 88 U/L (46-116) Total Protein 7.0 g/dL (5.7-8.2) Albumin 4.2 g/dL (3.2-4.8) Hemoglobin A1c 5.7 % A1C (<5.7) Lipase 28 U/L (12-53) Other Laboratory Tests 02/08/24 13:29 Brief Hx & Hospital Course: History of Present Illness The patient is a 28-year-old male who denies past medical history presented to [facility] ED with complaint of abdominal pain. Patient reports symptoms progressively get worse with epigastric abdominal pain, radiating downward to the suprapubic lower abdomen, squeezing in nature, constant, rating 9/10 numeric scale, nauseated, getting worse that prompted this visit. Patient was seen and evaluated in the ED, laboratory data shows elevated WBC 15.2, platelets 261, sodium 138, potassium 3.9, BUN 7, creatinine 1.04, GFR 101, glucose 144, lipase 28. Abdomen/pelvis CT revealing acute appendicitis. Patient was started on IV antibiotic regimen Rocephin, please see medication orders section in the computer. On my assessment, patient denied chest pain, no headache, no dizziness, no shortness of breath, no diarrhea, no nausea, no vomiting, no fever, no chills. Patient was admitted for further evaluation and medical management. Course of hospitalization: Patient was taken to the OR by Dr. Martinez with findings of perforated acute appendicitis. Patient had open procedure given his morbid obesity. Postoperatively, the patient's recovery was uneventful. Patient's diet has been advanced without any noted nausea or vomiting. Patient has positive bowel sounds and reports passing gas. Patient has been ambulating without any difficulty as well as having adequate pain management with oral medication. Cultures from surgery reveal Pseudomonas aeruginosa as well as E coli. Patient will be given one dose of IV Levaquin, and will be continued with p.o. Levaquin and Flagyl at home. He will also be provided analgesia with tramadol 50 mg as needed every 8 hours for [id number]-[id number] pain. He will follow up with the discharge Clinic in one week as well as following up with the surgical clinic in 10 days. Patient was agreeable with discharge plan. All questions answered. Physical examination General: Alert and Oriented x3. No acute distress. Well-nourished. Obese Eyes: EOMI. Anicteric. HENT: Moist mucous membranes. Lungs: Clear to auscultation bilaterally. No accessory muscle use. Cardiovascular: Regular rate and rhythm. No murmur. No JVD. Abdomen: Soft, non-tender and non-distended. No palpable masses. Dressing dry and intact. JAYLEN drain with serous fluid. Extremities: No edema. Non-tender. Skin: No rashes or lesions. Warm. Neurologic: No focal neurological deficits. CN II-XII grossly intact, but not individually tested. Psychiatric: Cooperative. Appropriate mood and affect. Total time spent with patient discussing and formulating plan of care: 35 minutes. This medical document was created using an electronic medical record system with [employer] system. Although this document has been carefully reviewed, there may still be some phonetic and typographical errors. These areas are purely typographical due to imperfections of the software programs, and do not reflect any compromise in the patient's medical care. Consults/Reason for consult Surgery: Acute appendicitis Operations or Procedures 02/06/2024: Open appendectomy Condition at Discharge: Fair Final Diagnosis/Problems List Sepsis secondary to ruptured appendicitis Secondary Diagnosis: -sepsis secondary to perforated appendix . Growth of E coli and Pseudomonas aeruginosa -acute appendicitis -morbid obesity Discharge Disposition: Home Discharge Instruct/Medications Diet: Regular Activity: See Comment Activity comment: Do not lift anything greater than 5 lb until being seen by surgeon after discharge Follow Up/Referral: Follow up withSurgery in 10 days DC clinic in one week Medications: Flagyl 500 mg p.o. t.i.d. x7 days Levaquin 500 mg p.o. daily x7 days Tramadol 50 mg p.o. q.8 hours as needed for [id number] pain 36 Discharge Statement: "Patient was advised to return to the ER or call 911 if any headaches, dizziness, shortness of breath, chest pain, abdominal pain, bleeding, fevers, or worsening of medical condition. Patient was counseled about treatment plan, medications, possible side effects, patientverbalized understanding. All questions were answered to the best of my ability. This discharge took greater then 30 minutes in planning, reviewing documentation, counseling the patient, and discussing with other team members." ASSESSMENT ASSESSMENT Assessment Sepsis secondary to ruptured appendicitis Date of Service: Feb 09, 2024 Billing Provider: FABIO SORIA NP Common Visit Codes: 95750-PJT/OBS DISCH DAY >30min FABIO SORIA NP Feb 09, 2024 14:35
[2024-02-09 15:09] VITALS: TEMP 36.8
[2024-02-09] MEDS: levoFLOXacin 500MG 100 ML IV ONE (15:53)
[2024-02-09] MEDS ORDERED: METO5TAB67 PO (15:55)
== END 2024-02-09 17:37 | disposition home or self-care (01) | DRG 710 ==
LOC: ER 18:57 → TELE 22:32 → WEST WING 02-06 15:35
PROVIDERS: ADMIT Nurse Practitioner Family; ATTEND Nurse Practitioner Acute Care
PROC: 0WJG4ZZ Inspection of Peritoneal Cavity, Percutaneous Endoscopic Approach (ICD-10-PCS; 2024-02-06)
PROC: 0DTJ0ZZ Resection of Appendix, Open Approach (ICD-10-PCS; principal; 2024-02-06 12:20)
DX: A41.9 Sepsis, unspecified organism (principal); K35.33 Acute appendicitis with perforation, localized peritonitis, and gangrene, with abscess; K56.7 Ileus, unspecified; E66.01 Morbid (severe) obesity due to excess calories; Z53.31 Laparoscopic surgical procedure converted to open procedure; Z79.899 Other long term (current) drug therapy; Z68.37 Body mass index [BMI] 37.0-37.9, adult
CPT/HCPCS: 36415; 74176; 80048; 80053; 81001; 83036; 83690; 85025; 87070; 87075; 87076; 87077; 87186; 87205; G0378; J0330; J1100; J1956; J2250; J2405; J3490

== ENCOUNTER 2024-02-24 19:21 | Emergency (ER) | payer MEDICAID ==
[~2024-02-24] VITALS: Ht 188 cm; Wt 122.9 kg
[~2024-02-24 19:21] MED LIST: LEVO500T91 PO; METO5TAB67 PO; METR-344 PO; TRAM50TA2 PO
--- NOTE | 2024-02-24 20:04 | ED.PDOC ---
History of Present Illness HPI Comments 28-year-old male who comes in with chief complaint of possible blood in his drain. The patient was status post appendectomy on the . He states that he is being scheduled to have his drain removed a but it was canceled a couple of times. The patient was supposed to see his doctor tomorrow. The patient denies any nausea, vomiting or diarrhea. Time Seen by MD: 19:24 Reviewed Notes: Nurses Notes, Medications, Allergies (No allergies to medications) Allergies: Coded Allergies: NO KNOWN ALLERGIES (Unverified , 02/05/24) Home Meds Active Scripts Metoclopramide Hcl (Reglan) 5 Mg Tab, 5 MG PO Q6HP PRN for 4 Days, #16 TAB Prov:FABIO SORIA NP 02/09/24 Metronidazole (Flagyl) 500 Mg Tab, 1 TAB PO TID for 7 Days, #21 TAB Prov:FABIO SORIA NP 02/09/24 Levofloxacin Hemihydrate (LEVAQUIN 500 MG) 500 Mg Tab, 1 TAB PO DAILY for 7 Days, #7 TAB Prov:FABIO SORIA NP 02/09/24 Tramadol Hcl (Tramadol Hcl) 50 Mg Tab, 50 MG PO Q8HP PRN for 5 Days, #15 TAB Prov:FABIO SORIA NP 02/09/24 Information Source: Patient Mode of Arrival: Ambulatory Severity: Mild Timing: Hours Duration: Since onset Prehospital treatment: None Associated signs and symptoms No abdominal pain but the patient just has some blood in the drain area Past Medical History PAST MEDICAL HISTORY: Denies Surgical History: Appendectomy Family History Family History: Family hx of DM Social History Smoker: Non-Smoker Alcohol: Denies ETOH Use Drugs: Denies Drug Use Lives In: Home Constitutional: denies: chills, diaphoresis, fatigue, fever, malaise, sweats, weakness, others EENTM: denies: blurred vision, double vision, ear bleeding, ear discharge, ear drainage, ear pain, ear ringing, eye pain, eye redness, hearing loss, mouth pain, mouth swelling, nasal discharge, nose bleeding, nose congestion, nose pain, photophobia, tearing, throat pain, throat swelling, voice changes, others Respiratory: denies: cough, hemoptysis, orthopnea, SOB at rest, shortness of breath, SOB with excertion, stridor, wheezing, others Cardiovascular: denies: chest pain, dizzy spells, diaphoresis, Dyspnea on exertion, edema, irregular heart beat, left arm pain, lightheadedness, palpitations, PND, syncope, others Gastrointestinal: denies: abdomen distended, abdominal pain, blood streaked bowels, constipated, diarrhea, dysphagia, difficulty swallowing, hematemesis, melena, nausea, poor appetite, poor fluid intake, rectal bleeding, rectal pain, vomiting, others Genitourinary: denies: burning, dysuria, flank pain, frequency, hematuria, incontinence, penile discharge, penile sore, pain, testicle pain, testicle swelling, urgency, others Neurological: denies: dizziness, fainting, headache, left sided numbness, left sided weakness, numbness, paresthesia, pre-existing deficit, right sided numbness, right sided weakness, seizure, speech problems, tingling, tremors, wea kness, others Musculoskeletal: denies: back pain, gout, joint pain, joint swelling, muscle pain, muscle stiffness, neck pain, others Integumetry: denies: bruises, change in color, change in hair/nails, dryness, l aceration, lesions, lumps, rash, wounds, others Allergic/Immunocompromised: denies: Difficulty Healing, Frequent Infections, Hives, Itching, others Hematologic/Lymphatic: denies: anemia, blood clots, easy bleeding, easy bruising, swollen glands, others Endocrine: denies: excessive hunger, excessive sweating, excessive thirst, excessive urination, flushing, intolerance to cold, intolerance to heat, unexplained weight gain, unexplained weight loss, others Psychiatric: denies: anxiety, bipolar disorder, depression, hopeless, panic disorder, schizophrenia, sleepless, suicidal, others Physical Exam General Appearance: No Apparent Distress HEENT: Normal ENT Inspection, Pharynx Normal, TMs Normal Neck: Full Range of Motion, Non-Tender, Normal, Normal Inspection Respiratory: Chest Non-Tender, Lungs Clear, No Accessory Muscle Use, No Respiratory Distress, Normal Breath Sounds Cardiovascular: No Edema, No JVD, No Murmur, No Gallop, Normal Peripheral Pulses, Regular Rate/Rhythm Breast Exam: Deferred Gastrointestinal: No Organomegaly, Non Tender, No Pulsatile Mass, Normal Bowel Sounds, Soft, Other (The patient has a drain to the left abdominal area) Genitalia: Deferred Pelvic: Deferred Rectal: Deferred Extremities: No calf tenderness, Normal capillary refill, Normal inspection, Normal range of motion, Non-tender, No pedal edema Musculoskeletal : Apperance: Normal Neurologic: Alert, [employer] consultant II-XII nml as Tested, No Motor Deficits, Normal Affect, Normal Mood, No Sensory Deficits Cerebellar Function: Normal Reflexes: Normal Skin: Dry, Normal Color, Warm Lymphatic: No Adenopathy Was a procedure done? Was a procedure done?: No Differential Dx Considerations may include: Status post appendectomy X-Ray, Labs, Meds, VS At this time, the patient's drain has ileum and a minimal amount of blood The patient was appointment tomorrow The patient was being discharged Time of 1ST Reevaluation: 20:02 Reevaluation 1ST: Improved Patient Education/Counseling: Diagnosis, Treatment, Prognosis, Need For Follow Up Family Education/Counseling: No Family Present Departure 1 Departure Time of Disposition: 20:04 Impression: Primary Impression: Status post appendectomy Additional Impression: JAYLEN drain bleeding Qualified Codes: T85.838A - Hemorrhage due to other internal prosthetic devices, implants and grafts, initial encounter Disposition: 01 HOME / SELF CARE / HOMELESS Condition: Fair Discharged With: Self Critical Care Note Critical Care Time?: No Stability Stability form required: No Heart Score Heart Score: Heart Score Response (Comments) Value History N/A 0 EKG N/A 0 Age N/A 0 Risk Factors N/A 0 Troponin N/A 0 Total 0 DON MEDINA MD Feb 24, 2024 20:04
[2024-02-24 21:56] VITALS: BP 119/64; PULSE 79; RESP 18; TEMP 98.4; O2SAT 99
== END 2024-02-24 22:00 | disposition home or self-care (01) ==
LOC: ER 19:21
DX: T85.838A Hemorrhage due to other internal prosthetic devices, implants and grafts, initial encounter (principal); Z90.49 Acquired absence of other specified parts of digestive tract

== ENCOUNTER 2024-09-01 16:40 | Emergency (ER) | payer MEDICAID, OTHER ==
[~2024-09-01] VITALS: Ht 188 cm; Wt 122.3 kg
--- NOTE | 2024-09-01 17:03 | ED.PDOC ---
Musculoskeletal HPI Comments 29-year-old male with no reported PMHx presents with a chief complaint of wound to bottom of right foot s/p metal puncture. Patient states that he was at work and stepped on a piece of metal that puncture through his work boot and into his foot. Patient has a small puncture wound to the bottom of his right foot. Patien ts bleeding is controlled at this time. Patient was wearing rubber sole boots at time of event. Chief Complaint: Lower Extremity Time Seen by MD: 16:52 Reviewed Notes: Nurses Notes, Medications, Allergies Allergies: Coded Allergies: NO KNOWN ALLERGIES (Unverified , 02/05/24) Home Meds Active Scripts Metoclopramide Hcl (Reglan) 5 Mg Tab, 5 MG PO Q6HP PRN for 4 Days, #16 TAB Prov:FABIO SORIA MACHINE LOAD CLERK 02/09/24 Metronidazole (Flagyl) 500 Mg Tab, 1 TAB PO TID for 7 Days, #21 TAB Prov:FABIO SORIA NP 02/09/24 Levofloxacin Hemihydrate (LEVAQUIN 500 MG) 500 Mg Tab, 1 TAB PO DAILY for 7 Days, #7 TAB Prov:FABIO SORIA MACHINE LOAD CLERK 02/09/24 Tramadol Hcl (Tramadol Hcl) 50 Mg Tab, 50 MG PO Q8HP PRN for 5 Days, #15 TAB Prov:FABIO SORIA NP 02/09/24 Information Source: Patient Mode of Arrival: Ambulatory Location: Right Extremity Location: Foot Timing: Hours Prehospital treatment: None Severity: Moderate Able to Move Extremity: Yes Bear Weight: Limited Pain: Moderate Hand Dominance: Right Mechanism: Metal Cut Circumstances: Work Related Onset of Symptoms: After Trauma Symptoms: Pain DVT Risk Factors: NONE Last Tetanus: > 5 Years Past Medical History PAST MEDICAL HISTORY: Denies Surgical History: Appendectomy Family History Family History: Family hx of DM Social History Smoker: Non-Smoker Alcohol: Denies ETOH Use Drugs: Denies Drug Use Lives In: Home Constitutional: denies: chills, diaphoresis, fatigue, fever, malaise, sweats, weakness, others EENTM: denies: blurred vision, double vision, ear bleeding, ear discharge, ear drainage, ear pain, ear ringing, eye pain, eye redness, hearing loss, mouth pain, mouth swelling, nasal discharge, nose bleeding, nose congestion, nose pain, photophobia, tearing, throat pain, throat swelling, voice changes, others Respiratory: denies: cough, hemoptysis, orthopnea, SOB at rest, shortness of breath, SOB with excertion, stridor, wheezing, others Cardiovascular: denies: chest pain, dizzy spells, diaphoresis, Dyspnea on exertion, edema, irregular heart beat, left arm pain, lightheadedness, palpitations, PND, syncope, others Gastrointestinal: denies: abdomen distended, abdominal pain, blood streaked bowels, constipated, diarrhea, dysphagia, difficulty swallowing, hematemesis, melena, nausea, poor appetite, poor fluid intake, rectal bleeding, rectal pain, vomiting, others Genitourinary: denies: burning, dysuria, flank pain, frequency, hematuria, incontinence, penile discharge, penile sore, pain, testicle pain, testicle swelling, urgency, others Neurological: denies: dizziness, fainting, headache, left sided numbness, left sided weakness, numbness, paresthesia, pre-existing deficit, right sided numbness, right sided weakness, seizure, speech problems, tingling, tremors, weakness, others Musculoskeletal: denies: back pain, gout, joint pain, joint swelling, muscle pain, muscle stiffness, neck pain, others Integumetry: reports: wounds (Puncture wound to right foot); denies: bruises, change in color, change in hair/nails, dryness, laceration, lesions, lumps, rash, others Allergic/Immunocompromised: denies: Difficulty Healing, Frequent Infections, Hives, Itching, others Hematologic/Lymphatic: denies: anemia, blood clots, easy bleeding, easy bruising, swollen glands, others Endocrine: denies: excessive hunger, excessive sweating, excessive thirst, excessive urination, flushing, intolerance to cold, intolerance to heat, unexplained weight gain, unexplained weight loss, others Psychiatric: denies: anxiety, bipolar disorder, depression, hopeless, panic disorder, schizophrenia, sleepless, suicidal, others All Other Systems: Reviewed and Negative Physical Exam General Appearance: Moderate Distress ([id number] distress due to right foot pain concerns.), Obese HEENT: Normal ENT Inspection, Pharynx Normal, TMs Normal Neck: Full Range of Motion, Non-Tender, Normal, Normal Inspection Respiratory: Chest Non-Tender, Lungs Clear, No Accessory Muscle Use, No Respiratory Distress, Normal Breath Sounds Cardiovascular: No Edema, No JVD, No Murmur, No Gallop, Normal Peripheral Pulses, Regular Rate/Rhythm Breast Exam: Deferred Gastrointestinal: No Organomegaly, Non Tender, No Pulsatile Mass, Normal Bowel Sounds, Soft Genitalia: Deferred Pelvic: Deferred Rectal: Deferred Extremities: No calf tenderness, Normal capillary refill, No pedal edema Musculoskeletal : Apperance: Normal Neurologic: Alert, No Motor Deficits, Normal Affect, Normal Mood, No Sensory Deficits Cerebellar Function: Normal Reflexes: Normal Skin: Dry, Normal Color, Warm, Wounds (Patient displays a puncture wound to the pedal aspect of the right forefoot. No active bleed.) Lymphatic: No Adenopathy Was a procedure done? Was a procedure done?: No Differential Diagnosis EXT Differential Diagnosis: Cellulitis, Other (Puncture wound) X-Ray, Labs, Meds, VS Comment Discussed the wound with the patient. Advised that due to the rubber soled shoes, patient will require specific antibiotics to stave off any Pseudomonas infection. Advised patient utilize pain medication as needed. Time of 1ST Reevaluation: 17:17 Reevaluation 1ST: Improved Consultation: PCP Patient Education/Counseling: Diagnosis, Treatment, Need For Follow Up Family Education/Counseling: Diagnosis, Treatment, No Family Present Sepsis Recent Procedure: No On Antibiotic Therapy: No Respiratory Rate >20: No Heart Rate >90: No Temp<36 C (96.8 F) or >38.3 C: No SBP <90 or MAP <65 mmHG: No New Acute Mental Status Change: No Is the patient on CPAP, BIPAP,: No IV fluid given: No Departure 1 Departure Time of Disposition: 17:17 Impression: Primary Impression: Puncture wound of foot Disposition: HOME / SELF CARE / HOMELESS Condition: Stable Additional Instructions: Advised patient utilize antibiotics as directed until completion as well as pain medication as needed. Patient should keep the wound clean and dressed. e-Prescriptions Acetaminophen (Acetaminophen) 500 Mg Tab 500 MG PO Q4HP PRN, #30 TAB Prov: MARIA RODRIGUEZ PAC 09/01/24 Ibuprofen Micronized (Ibuprofen) 800 Mg Tab 800 MG PO Q8HP PRN, #20 TAB Prov: MARIA RODRIGUEZ PAC 09/01/24 Ciprofloxacin Hcl (Cipro) 500 Mg Tab 1 TAB PO BID for 7 Days, #14 TAB Prov: MARIA RODRIGUEZ PAC 09/01/24 Discharged With: Self, Friend Critical Care Note Critical Care Time?: No Stability Stability form required: No Heart Score Heart Score: Heart Score Response (Comments) Value History N/A 0 EKG N/A 0 Age N/A 0 Risk Factors N/A 0 Troponin N/A 0 Total 0 I personally scribed for MARIA RODRIGUEZ PAC ([email or web address]) on 09/01/24 at 17:03. Electronically submitted by Andry Garcia ([email or web address]). MARIA RODRIGUEZ PAC Sep 01, 2024 17:03
[2024-09-01] MEDS ORDERED: CIPR-173 PO (17:18)
[2024-09-01] MEDS ORDERED: IBUP-1455 PO (17:18)
[2024-09-01] MEDS ORDERED: ACET500T58 PO (17:18)
[2024-09-01] MEDS: KETOROLAC TROMETH 60MG/2ML VIAL IM ONE (17:41)
[2024-09-01] MEDS: TETANUS-DIPTH-ACEL PERTUSSIS 0.5ML SYR Tdap IM ONE (17:41)
[2024-09-01] MEDS: HYDROcodone-ACET 5/325MG TAB PO ONE (17:41)
[2024-09-01 17:47] VITALS: BP 136/85; PULSE 74; RESP 16; TEMP 98.4; O2SAT 98
== END 2024-09-01 17:56 | disposition home or self-care (01) ==
LOC: ER 16:40
DX: S91.331A Puncture wound without foreign body, right foot, initial encounter (principal); Z90.49 Acquired absence of other specified parts of digestive tract; Z79.899 Other long term (current) drug therapy; W22.8XXA Striking against or struck by other objects, initial encounter; Y93.89 Activity, other specified; Y92.89 Other specified places as the place of occurrence of the external cause; Y99.8 Other external cause status
CPT/HCPCS: 90471; 90715; 96372; 99284; J1885